=== PATIENT | male | born 1975 | race African-American/Black ===

== ENCOUNTER → 2017-10-23 | Outpatient (CLI) | payer OTHER ==
--- NOTE | 2017-10-24 15:02 | TST ---
[facility] [address] [place] [address] TREADMILL STRESS TEST Name: LOLIS TENORIO Room: [facility]#: [id number] Admission: 10/23/17 Attend Phys: Tomas Rivera, Discharge: Date of : 75 Date of Service: 10/23/17 1624 Report #: [id number] THIS REPORT FOR: //name// CC: Tomas LINCOLN DATE OF SERVICE: 10/23/2017 REFERRING PHYSICIAN: Tomas Rivera DO INDICATION: Chest pain. PROCEDURE: Standard Jani protocol exercise stress test. CARDIAC RISK FACTORS: Hyperlipidemia and hypertension. CARDIAC MEDICATIONS: None. The patient exercised per the standard Jani protocol for 9 minutes and 45 seconds. The patient achieved 98% of the age-predicted maximum heart rate and an energy expenditure equivalent to 11.35 METs. The resting blood pressure was 138/84 mmHg with resting heart rate of 79 beats per minute. At peak exercise, the blood pressure was 214/112 mmHg with a peak stress heart rate of 176 beats per minute. In recovery, the blood pressure was 152/92 mmHg with a recovery heart rate of 99 beats per minute. The baseline 12-lead electrocardiogram showed sinus rhythm with no significant ST or T-wave abnormality. EKGs obtained during and post-exercise stress showed sinus rhythm and sinus tachycardia with no significant ST or T-wave changes when compared to baseline. The recovery EKG was unremarkable. The patient exhibited a hypertensive response to exercise. The patient's heart rate response to exercise was normal. IMPRESSION: 1. Clinical response: Nonischemic. 2. EKG response: Nonischemic. 3. Hypertensive [place] [address] TREADMILL STRESS TEST Name: LOLIS TENORIO Room: [facility] Sajan#: [id number] Admission: 10/23/17 Attend Phys: Tomas Rivera, Discharge: Date of : 75 Date of Service: 10/23/17 1624 Report #: [id number] CONCLUSION: This standard Jani protocol exercise stress test shows no evidence to suggest stress-induced ischemia. This is a low-risk study. <ELECTRONICALLY SIGNED> By: Dru Simpson MD, FACC 10/24/17 1502 1624 0100 Dru Simpson MD, FACC /nt
== END ==
LOC: M.CRD 11:50
DX: R07.9 Chest pain, unspecified (principal)